=== PATIENT | female | born 1955 | race Caucasian/White ===

== ENCOUNTER 2022-02-26 11:06 | Outpatient (CLI) | payer OTHER | END 2022-02-26 11:07 | disposition home or self-care (01) | LOC: CSHMRI 11:06 | PROVIDERS: ATTEND Student in an Organized Health Care Education/Training Program | DX: M25.561 Pain in right knee (principal); S83.281A Other tear of lateral meniscus, current injury, right knee, initial encounter; M94.261 Chondromalacia, right knee; S83.8X1A Sprain of other specified parts of right knee, initial encounter; M67.461 Ganglion, right knee ==